=== PATIENT | female | born 1955 ===

== ENCOUNTER 2021-07-02 05:08 | Inpatient (IN) | payer BC ==
[2021-07-02] MEDS ORDERED: ASPIRIN 325 MG TAB PO ONE (05:26)
[2021-07-02 05:56] LABS: Basophils % (Auto) 0.6 % (0.0-1.8); Eosinophils # (Auto) 0.1 K/mm3 (0.0-0.4); Eosinophils % (Auto) 1.6 % (0.0-4.3); Hematocrit 40.4 % (30.3-42.9); Hemoglobin 13.2 gm/dl (10.1-14.3); Lymphocytes # (Auto) 2.6 K/mm3 (1.2-5.4); Lymphocytes % (Auto) 54.8 % (13.4-35.0); Mean Corpuscular HGB Conc 33 % (30-34); Mean Corpuscular Volume 86 fl (79-97); Monocytes # (Auto) 0.4 K/mm3 (0.0-0.8); Monocytes % (Auto) 8.1 % (0.0-7.3); Red Blood Count 4.68 M/mm3 (3.65-5.03); Red Cell Distribution Width 13.6 % (13.2-15.2)
[2021-07-02 06:08] LABS: Platelet Count 118 K/mm3 (140-440)
[2021-07-02 06:11] LABS: Alanine Aminotransferase 13 units/L (7-56); Albumin 4.3 g/dL (3.9-5); BUN/Creatinine Ratio 15; Blood Urea Nitrogen 9 mg/dL (7-17); Calcium 9.7 mg/dL (8.4-10.2); Hemolysis Index 8
--- NOTE | 2021-07-02 06:44 | Emergency Department Report ---
ED Chest Pain HPI - General Chief Complaint: Chest Pain Stated Complaint: CHEST PAIN Time Seen by Provider: 07/02/21 06:23 Source: patient, EMS Mode of arrival: Stretcher Limitations: No Limitations - History of Present Illness Initial Comments: Patient is 66 years old female with history of hypertension. Patient presented to the ER complaining left-sided chest pain. Patient stated that pain started this morning woke from sleep. Patient described the chest pain as tightness that radiated to the left arm. Pain resolved with nitroglycerin however patient returned back again. Patient denies any shortness of breath. No fever chills or cough. MD Complaint: chest pain -: This morning Onset: during rest Pain Location: left chest Pain Radiation: LUE Severity: moderate Severity scale (0 -10): 7 Quality: tightness, heaviness Consistency: intermittent Treatments Prior to Arrival: aspirin - Related Data Allergies Allergy/AdvReac Type Severity Reaction Status Date / Time Penicillins Allergy Hives Verified 07/02/21 05:25 Heart Score - HEART Score History: Moderately suspicious EKG: Non-specific Age: 45-65 Risk factors: 1-2 risk factors Troponin: < normal limit HEART Score: 4 - EKG Read Time Time EKG Completed: 05:34 EKG Read Time: 05:34 - Critical Actions Critical Actions: 4-6 pts:12-16.6% risk of adverse cardiac event. Should be admitted ED Review of Systems ROS: Stated complaint: CHEST PAIN Other details as noted in HPI Comment: All other systems reviewed and negative Constitutional: denies: chills, fever Respiratory: denies: cough, shortness of breath, SOB with exertion, SOB at rest Cardiovascular: chest pain. denies: palpitations, dyspnea on exertion Gastrointestinal: denies: abdominal pain, nausea, vomiting Musculoskeletal: denies: back pain Neurological: denies: headache, weakness, numbness, paresthesias, confusion ED Past Medical Hx - Past Medical History Previous Medical History?: Yes Hx Hypertension: Yes Hx Headaches / Migraines: Yes Hx Psychiatric Treatment: Yes (Anxiety) - Surgical History Past Surgical History?: Yes Additional Surgical History: Bilateral Breast Reduction - Social History Smoking Status: Never Smoker Substance Use Type: None ED Physical Exam - General Limitations: No Limitations General appearance: alert, in no apparent distress - Head Head exam: Present: atraumatic, normocephalic, normal inspection - Eye Eye exam: Present: normal appearance - ENT ENT exam: Present: normal exam, normal orophraynx, mucous membranes moist - Neck Neck exam: Present: normal inspection, full ROM. Absent: tenderness, meningismus - Respiratory Respiratory exam: Present: normal lung sounds bilaterally. Absent: chest wall tenderness - Cardiovascular Cardiovascular Exam: Present: regular rate, normal rhythm, normal heart sounds - GI/Abdominal GI/Abdominal exam: Present: soft, normal bowel sounds. Absent: distended, tenderness, guarding, rebound, rigid, organomegaly, mass, bruit, pulsatile mass, hernia - Extremities Exam Extremities exam: Present: normal inspection, full ROM, normal capillary refill. Absent: tenderness, pedal edema, joint swelling, calf tenderness - Back Exam Back exam: Present: normal inspection, full ROM. Absent: CVA tenderness (R), CVA tenderness (L) - Neurological Exam Neurological exam: Present: alert, oriented X3, CN II-XII intact, normal gait, reflexes normal. Absent: motor sensory deficit - Psychiatric Psychiatric exam: Present: normal mood - Skin Skin exam: Present: warm, intact, normal color ED Course Vital Signs 07/02/21 07/02/21 07/02/21 05:19 06:15 06:31 Temperature 98 F Pulse Rate 65 75 68 Respiratory 18 13 12 Rate Blood Pressure 154/70 155/76 146/73 Blood Pressure [Left] O2 Sat by Pulse 99 96 95 Oximetry 07/02/21 07/02/21 06:45 08:39 Temperature Pulse Rate 72 81 Respiratory 14 16 Rate Blood Pressure 146/78 Blood Pressure 145/81 [Left] O2 Sat by Pulse 96 96 Oximetry ED Medical Decision Making - Lab Data Result diagrams: 07/02/21 05:41 07/02/21 05:41 - EKG Data -: EKG Interpreted by Dc EKG shows normal: sinus rhythm Rate: normal - EKG Data Interpretation: no acute changes - Radiology Data Radiology results: report reviewed - Medical Decision Making Patient is 66 years old female with history of hypertension. Patient presented to the ER complaining left-sided chest pain. Patient stated that pain started this morning woke from sleep. Patient described the chest pain as tightness that radiated to the left arm. Pain resolved with nitroglycerin however patient returned back again. Patient denies any shortness of breath. No fever chills or cough. EKG showed no ST elevation. Labs reviewed and is unremarkable including a nega tive troponin x2. Patient required another dose of nitroglycerin in the emergency room. Patient received aspirin in the ER. Chest x-ray is unremarkable. I discussed the patient with Dr. Hernandez, he agreed to admit the patient to the hospital for further management. Critical Care Time: Yes Critical care time in (mins) excluding proc time.: 35 Critical care attestation.: If time is entered above; I have spent that time in minutes in the direct care of this critically ill patient, excluding procedure time. ED Disposition Clinical Impression: Unstable angina Disposition: ADMITTED INPATIENT Is pt being admited?: Yes Condition: Stable Instructions: Angina, [id number]
--- NOTE | 2021-07-02 07:03 | XRay Report ---
CHEST 1 VIEW 07/02/2021 5:50 AM INDICATION / CLINICAL INFORMATION: chest pain. COMPARISON: None available. FINDINGS: SUPPORT DEVICES: None. HEART / MEDIASTINUM: No significant abnormality. LUNGS / PLEURA: No significant pulmonary abnormality. No significant pleural effusion. No pneumothora x. ADDITIONAL FINDINGS: No significant additional findings. IMPRESSION: 1. No acute abnormality of the chest. Signer Name: Juma Herrmann MD Signed: 07/02/2021 6:58 AM Workstation Name: [id number]
[2021-07-02 08:19] LABS: INR 0.91 (0.87-1.13); Partial Thromboplastin Time 25.1 Sec. (24.2-36.6)
[2021-07-02] MEDS ORDERED: NITROGLYCERIN 0.4 MG TAB SUBL SL ONE (09:08)
[2021-07-02] MEDS ORDERED: ONDANSETRON 4 MG/2 ML INJ IV PRN (13:24)
[2021-07-02] MEDS ORDERED: ACETAMINOPHEN 325 MG TAB PO PRN (13:24)
[2021-07-02] MEDS ORDERED: METOCLOPRAMIDE 10 MG/2 ML INJ IV PRN (13:24)
[2021-07-02] MEDS: MORPHINE 2 MG/1 ML INJ IV PRN ×2 (15:22→22:27)
[2021-07-02 21:13] LABS: Creatine Kinase MB 1.3 ng/mL (0.0-4.0)
[2021-07-02] MEDS: IBUPROFEN 600 MG TAB PO PRN (22:23)
[2021-07-02] MEDS: FAMOTIDINE 20 MG TAB PO SCH (22:31)
[2021-07-02 23:33] LABS: Creatine Kinase MB 1.4 ng/mL (0.0-4.0)
--- NOTE | 2021-07-03 00:03 | History and Physical Report ---
History of Present Illness Date of examination: 07/02/21 Date of admission: 07/02/21 11:46 Chief complaint: Chest pain since a.m. History of present illness: Patient is 66 years old female with history of hypertension. Patient presented to the ER complaining left-sided chest pain. Patient stated that pain started this morning woke from sleep. Patient described the chest pain as tightness that radiated to the left arm. Pain resolved with nitroglycerin however patient returned back again. Patient denies any shortness of breath. No fever chills or cough. Chest pain is intermittent and about 8 on a scale of 1-10. Exacerbated by touching her left side of the chest especially in the left second and third costochondral junction and precordial area. Chest pain is reproducible. - Past Medical History --Previous Medical History?: Yes --Hypertension: Yes --Headaches / Migraines: Yes --Psychiatric Treatment: Yes (Anxiety) - Surgical History --Past Surgical History?: Yes --Additional Surgical History: Bilateral Breast Reduction - Social History --Smoking Status: Never Smoker --Substance Use Type: None Review of Systems ROS: Constitutional no weight loss or weight gain no fever or chills HEENT no sore throat no post nasal drip no diplopia Neck no neck stiffness no lymph gland enlargement Chest and lungs no shortness of breath cough or wheezing CVS no chest pain no diaphoresis no palpitations GI no nausea no vomiting no diarrhea Genitourinary system no dysuria no flank pain Musculoskeletal system no muscle pains no joint pains [employer] no syncope no seizures Skin no rash no itching Psychiatric no depression no homicidal or suicidal tendencies Hematologic no lymphedema or bruising Endocrine no polydipsia no polyuria no cold intolerance no heat intolerance Medications and Allergies Allergies Allergy/AdvReac Type Severity Reaction Status Date / Time Penicillins Allergy Hives Verified 07/02/21 05:25 Home Medications Medication Instructions Recorded Confirmed Last Taken Type SUMAtriptan SUCCINATE [Imitrex] 50 mg PO QDAY PRN 07/02/21 07/02/21 Unknown History Active Meds: Active Medications Acetaminophen (Acetaminophen 325 Mg Tab) 650 mg PO Q4H PRN PRN Reason: Pain MILD(1-3)/Fever >100.5/JIMENEZ Famotidine (Famotidine 20 Mg Tab) 20 mg PO BID YOHANNES Last Admin: 05/21/22 22:31 Dose: 20 mg Ibuprofen (Ibuprofen 600 Mg Tab) 600 mg PO Q6H PRN PRN Reason: Pain, Mild (1-3) Last Admin: 07/02/21 22:23 Dose: 600 mg Metoclopramide HCl (Metoclopramide 10 Mg/2 Ml Inj) 10 mg IV Q6H PRN PRN Reason: Nausea And Vomiting Morphine Sulfate (Morphine 2 Mg/1 Ml Inj) 2 mg IV Q4H PRN PRN Reason: Pain, Moderate (4-6) Last Admin: 07/02/21 22:27 Dose: 2 mg Ondansetron HCl (Ondansetron 4 Mg/2 Ml Inj) 4 mg IV Q8H PRN PRN Reason: Nausea And Vomiting Sodium Chloride (Sodium Chloride 0.9% 10 Ml Flush Syringe) 10 ml IV BID YOHANNES Last Admin: 07/02/21 22:23 Dose: 10 ml Sodium Chloride (Sodium Chloride 0.9% 10 Ml Flush Syringe) 10 ml IV PRN PRN PRN Reason: LINE FLUSH Sodium Chloride (Sodium Chloride 0.9% 10 Ml Flush Syringe) 10 ml IV BID YOHANNES Sodium Chloride (Sodium Chloride 0.9% 10 Ml Flush Syringe) 10 ml IV PRN PRN PRN Reason: LINE FLUSH Exam - Constitutional Vitals: Temp Pulse Resp BP Pulse Ox 98.5 F 65 18 108/56 96 07/02/21 20:25 07/02/21 20:25 07/02/21 20:25 07/02/21 20:25 07/02/21 20:25 General appearance: Present: no acute distress, well-nourished - EENT Eyes: Present: PERRL ENT: hearing intact, clear oral mucosa - Neck Neck: Present: supple, normal ROM - Respiratory Respiratory effort: normal Respiratory: bilateral: CTA - Cardiovascular Heart rate: 78 Rhythm: regular Heart Sounds: Present: S1 & S2. Absent: rub, click Details: Chest wall tenderness present. 's second and third costochondral junction and left infraclavicular area Pain is reproducible - Extremities Extremities: pulses symmetrical, No edema Peripheral Pulses: within normal limits - Abdominal General gastrointestinal: Present: soft, non-tender, non-distended, normal bowel sounds Female genitourinary: Present: normal - Integumentary Integumentary: Present: clear, warm, dry - Musculoskeletal Musculoskeletal: gait normal, strength equal bilaterally - Psychiatric Psychiatric: appropriate mood/affect, intact judgment & insight - Neurologic Neurologic: CNII-XII intact, moves all extremities HEART Score - HEART Score History: Slightly suspicious EKG: Non-specific Age: 45-65 Risk factors: 1-2 risk factors Troponin: Troponin T < 0.010 ng/mL (0.00-0.029) 07/02/21 22:57 Troponin: < normal limit HEART Score: 3 - Critical Actions Critical Actions: 4-6 pts:12-16.6% risk of adverse cardiac event. Should be admitted Results - Labs CBC & Chem 7: 07/03/21 04:33 07/03/21 04:33 Labs: Laboratory Last Values WBC 4.8 K/mm3 (4.5-11.0) 07/02/21 05:41 RBC 4.68 M/mm3 (3.65-5.03) 07/02/21 05:41 Hgb 13.2 gm/dl (10.1-14.3) 07/02/21 05:41 Hct 40.4 % (30.3-42.9) 07/02/21 05:41 MCV 86 fl (79-97) 07/02/21 05:41 MCH 28 pg (28-32) 07/02/21 05:41 MCHC 33 % (30-34) 07/02/21 05:41 RDW 13.6 % (13.2-15.2) 07/02/21 05:41 Plt Count 118 K/mm3 (140-440) L 07/02/21 05:41 Lymph % (Auto) 54.8 % (13.4-35.0) H 07/02/21 05:41 [place] % (Auto) 8.1 % (0.0-7.3) H 07/02/21 05:41 Eos % (Auto) 1.6 % (0.0-4.3) 07/02/21 05:41 Baso % (Auto) 0.6 % (0.0-1.8) 07/02/21 05:41 Lymph # (Auto) 2.6 K/mm3 (1.2-5.4) 07/02/21 05:41 [place] # (Auto) 0.4 K/mm3 (0.0-0.8) 07/02/21 05:41 Eos # (Auto) 0.1 K/mm3 (0.0-0.4) 07/02/21 05:41 Baso # (Auto) 0.0 K/mm3 (0.0-0.1) 07/02/21 05:41 Seg Neutrophils % 34.9 % (40.0-70.0) L 07/02/21 05:41 Seg Neutrophils # 1.7 K/mm3 (1.8-7.7) L 07/02/21 05:41 PT 13.2 Sec. (12.2-14.9) 07/02/21 07:49 INR 0.91 (0.87-1.13) 07/02/21 07:49 APTT 25.1 Sec. (24.2-36.6) 07/02/21 07:49 Sodium 142 mmol/L (137-145) 07/02/21 05:41 Potassium 4.2 mmol/L (3.6-5.0) 07/02/21 05:41 Chloride 106.2 mmol/L (98-107) 07/02/21 05:41 Carbon Dioxide 27 mmol/L (22-30) 07/02/21 05:41 Anion Gap 13 mmol/L 07/02/21 05:41 BUN 9 mg/dL (7-17) 07/02/21 05:41 Creatinine 0.6 mg/dL (0.6-1.2) 07/02/21 05:41 Estimated GFR > 60 ml/min 07/02/21 05:41 BUN/Creatinine Ratio 15 % 07/02/21 05:41 Glucose 94 mg/dL (65-100) 07/02/21 05:41 Calcium 9.7 mg/dL (8.4-10.2) 07/02/21 05:41 Total Bilirubin 0.30 mg/dL (0.1-1.2) 07/02/21 05:41 AST 15 units/L (5-40) 07/02/21 05:41 ALT 13 units/L (7-56) 07/02/21 05:41 Alkaline Phosphatase 72 units/L (35-129) 07/02/21 05:41 Total Creatine Kinase 78 units/L (30-135) 07/02/21 22:57 CK-MB (CK-2) 1.4 ng/mL (0.0-4.0) 07/02/21 22:57 CK-MB (CK-2) Rel Index 1.7 (0-4) 07/02/21 22:57 Troponin T < 0.010 ng/mL (0.00-0.029) 07/02/21 22:57 NT-Pro-B Natriuret Pep 48.55 pg/mL (0-900) 07/02/21 07:49 Total Protein 7.1 g/dL (6.3-8.2) 07/02/21 05:41 Albumin 4.3 g/dL (3.9-5) 07/02/21 05:41 Albumin/Globulin Ratio 1.5 % 07/02/21 05:41 - Imaging and Cardiology EKG: report reviewed (Sinus rhythm no acute ST-T wave changes) Assessment and Plan Advance Directives: Yes (Full code) VTE prophylaxis?: Chemical Plan of care discussed with patient/family: Yes - Patient Problems (1) Costochondritis, acute Current Visit: Yes Status: Acute Plan to address problem: Classic case of acute costochondritis Chest wall tenderness present. Especially in the left second and third costochondral region and left infraclavicular area IV Toradol initiated Patient to be discharged and NSAIDs by primary team Serial troponins for now to rule out any acute coronary syndrome (2) Atypical chest pain Current Visit: Yes Status: Acute Plan to address problem: Serial troponins and CK-MB's Discharge tomorrow if troponins and CK-MB's are negative Clinically more more favor of acute costochondritis Patient can follow-up with cardiology 1 to 2 weeks (3) HTN (hypertension) Current Visit: Yes Status: Chronic Plan to address problem: Continue antihypertensives and adjust medications (4) JEWEL (generalized anxiety disorder) Current Visit: Yes Status: Chronic Plan to address problem: Patient on BuSpar 10 mg twice a day (5) DVT prophylaxis Current Visit: Yes Status: Acute (6) Advance care planning Current Visit: Yes Status: Acute (7) Discharge planning issues Current Visit: Yes Status: Acute (8) Migraines Current Visit: Yes Status: Inactive Plan to address problem: Imitrex on hold (9) DVT prophylaxis Current Visit: Yes Status: Acute Plan to address problem: On anticoagulation GI prophylaxis (10) Advance care planning Current Visit: Yes Status: Acute Plan to address problem: Disease education conducted, care plan discussed, diagnosis discussed, prognosis discussed. Patient is full code. Patient acknowledges understanding and agreement with care plan. +30 minutes. (11) Discharge planning issues Current Visit: Yes Status: Acute Plan to address problem: If troponins and CK-MB's are negative patient can be discharged tomorrow on NSAID's Follow-up with cardiology as outpatient in 1 to 2 weeks
[2021-07-03 04:24] VITALS: BP 124/70
[2021-07-03 05:25] LABS: Hematocrit 39.5 % (30.3-42.9); Hemoglobin 12.7 gm/dl (10.1-14.3); Mean Corpuscular HGB Conc 32 % (30-34); Mean Corpuscular Volume 87 fl (79-97); Red Blood Count 4.52 M/mm3 (3.65-5.03); Red Cell Distribution Width 13.8 % (13.2-15.2)
[2021-07-03 05:38] LABS: Platelet Count 136 K/mm3 (140-440)
[2021-07-03 05:44] LABS: Alanine Aminotransferase 12 units/L (7-56); Albumin 3.5 g/dL (3.9-5); BUN/Creatinine Ratio 15; Blood Urea Nitrogen 9 mg/dL (7-17); Calcium 9.1 mg/dL (8.4-10.2); Hemolysis Index 15
[2021-07-03 06:31] LABS: Anisocytosis 1+; Basophils % (Manual) 0 % (0.0-1.8); Platelet Estimate Consistent w Auto; Total Cells Counted 100
[2021-07-03] MEDS: KETOROLAC 30 MG/1 ML INJ IV SCH ×3 (06:39→12:54)
[2021-07-03] MEDS: FAMOTIDINE 20 MG TAB PO SCH (09:05)
--- NOTE | 2021-07-03 09:47 | Discharge Summary ---
Providers - Providers Date of Admission: 07/02/21 11:46 Date of discharge: 07/03/21 Attending physician: ANNE-MARIE SANTIAGO MD Primary care physician: [facility] [employer] Hospitalization Reason for admission: Atypical chest pain, ACS rule out Condition: Stable Pertinent studies: Reviewed. Procedures: None. Hospital course: Patient is a 66-year-old female past medical history of hypertension, anxiety, migraine headaches, and morbid obesity who presented to the ED with left-sided chest pain that she stated awoke her from sleep. She describes the pain as tight and radiating to her left arm and resolving with nitroglycerin. She describes the pain as having returned on a scale of 8 out of 10. The pain is exacerbated by palpation of her left chest, especially in the left second and third costochondral junction and precordial area. On presentation to the ED, the patient was hemodynamically stable. The patient had negative troponins x4 with unremarkable labs. The patient will follow-up with outpatient cardiology in approximately 2 weeks to be evaluated for possible outpatient stress test. Patient is medically clear for discharge. Disposition: 01 HOME / SELF CARE / HOMELESS Final Discharge Diagnosis (Prints w/discharge instructions): Acute costochondritis, atypical chest pain, hypertension, generalized anxiety disorder, migraine headaches, morbid obesity Time spent for discharge: 45 min Core Measure Documentation - Palliative Care Palliative Care/ Comfort Measures: Not Applicable - Core Measures Any of the following diagnoses?: none Exam - Constitutional Vitals: Temp Pulse Resp BP Pulse Ox 97.4 F L 62 18 124/70 98 07/03/21 04:12 07/03/21 04:12 07/03/21 04:12 07/03/21 04:12 07/03/21 07:59 General appearance: Present: no acute distress, well-nourished, obese - EENT Eyes: Present: PERRL, EOM intact ENT: hearing intact, clear oral mucosa - Neck Neck: Present: supple, normal ROM - Respiratory Respiratory effort: normal Respiratory: bilateral: CTA - Cardiovascular Rhythm: regular Heart Sounds: Present: S1 & S2 - Extremities Extremities: no ischemia, pulses intact, pulses symmetrical, No edema, normal temperature, normal color Peripheral Pulses: within normal limits - Abdominal General gastrointestinal: Present: soft, non-tender, non-distended, normal bowel sounds Female genitourinary: Present: deferred - Rectal Rectal Exam: deferred - Integumentary Integumentary: Present: clear, warm, dry - Musculoskeletal Musculoskeletal: strength equal bilaterally - Psychiatric Psychiatric: appropriate mood/affect, cooperative - Neurologic Neurologic: CNII-XII intact - Allied Health Allied health notes reviewed: nursing Plan Activity: advance as tolerated Diet: low salt Additional Instructions: Patient is a 66-year-old female past medical history of hypertension, anxiety, migraine headaches, and morbid obesity who presented to the ED with left-sided chest pain that she stated awoke her from sleep. She describes the pain as tight and radiating to her left arm and resolving with nitroglycerin. She describes the pain as having returned on a scale of 8 out of 10. The pain is exacerbated by palpation of her left chest, especially in the left second and third costochondral junction and precordial area. On presentation to the ED, the patient was hemodynamically stable. The patient had negative troponins x4 with unremarkable labs. The patient will follow-up with outpatient cardiology in approximately 2 weeks to be evaluated for possible outpatient stress test. Patient is medically clear for discharge. Care Plan Goals: Patient is medically clear for discharge. Assessment: Patient is a 66-year-old female past medical history of hypertension, anxiety, migraine headaches, and morbid obesity who presented to the ED with left-sided chest pain that she stated awoke her from sleep. She describes the pain as tight and radiating to her left arm and resolving with nitroglycerin. She describes the pain as having returned on a scale of 8 out of 10. The pain is exacerbated by palpation of her left chest, especially in the left second and third costochondral junction and precordial area. On presentation to the ED, the patient was hemodynamically stable. The patient had negative troponins x4 with unremarkable labs. The patient will follow-up with outpatient cardiology in approximately 2 weeks to be evaluated for possible outpatient stress test. Patient is medically clear for discharge. Follow up with: PAUL AGUILA MD [Primary Care Provider] - 3-5 Days RULA VALLE MD [Staff Physician] - 14 Days ESTRELLITA VILLALPANDO MD [Staff Physician] - 14 Days (For outpatient stress test. ) Prescriptions: SUMAtriptan SUCCINATE [Imitrex] 50 mg PO QDAY PRN #30 tab PRN Reason: Migraine Headache
[2021-07-03] MEDS: IBUPROFEN 600 MG TAB PO PRN (11:22)
--- NOTE | 2021-07-03 18:13 | Electrocardiograph Report ---
[facility] Test Date: 2021-07-02 Test Time: 05:34:41 Pat Name: FREDERIC REINOSO Department: Room: A451 Gender: F Slot Host: CULLEN : 1955 Requested By: WOODY NICHOLS Order Number: [id number] Reading MD: Reva Richter Measurements Intervals [place] Rate: 66 P: 58 [place]: 199 QRS: 44 QRSD: 83 T: 69 QT: 379 QTc: 398 Interpretive Statements Sinus rhythm No previous ECG available for comparison Electronically Signed On 07-03-2021 18:13:19 EDT by Reva Richter
--- NOTE | 2021-07-04 08:57 | Electrocardiograph Report ---
[facility] Test Date: 2021-07-03 Test Time: 10:24:34 Pat Name: FREDERIC REINOSO Department: Room: A451 1 Gender: F Alarm Installation Technician: LOREN : 1955 Requested By: WOODY NICHOLS Order Number: [id number] Reading MD: Dylan Anaya Measurements Intervals [place] Rate: 75 P: 64 [place]: 181 QRS: 29 QRSD: 84 T: 63 QT: 383 QTc: 429 Interpretive Statements Sinus rhythm Compared to ECG 07/02/2021 05:34:41 No significant changes Electronically Signed On 07-04-2021 8:57:06 EDT by Dylan Anaya
== END 2021-07-03 17:39 | disposition home or self-care (01) | DRG 206 ==
LOC: ED 05:08 → CC1 11:46 → 4A 13:31
PROVIDERS: ADMIT Internal Medicine; ATTEND Student in an Organized Health Care Education/Training Program
DX: M94.0 Chondrocostal junction syndrome [Tietze] (principal); I10 Essential (primary) hypertension; G43.909 Migraine, unspecified, not intractable, without status migrainosus; F41.9 Anxiety disorder, unspecified; F41.1 Generalized anxiety disorder; E66.01 Morbid (severe) obesity due to excess calories; Z68.37 Body mass index [BMI] 37.0-37.9, adult
CPT/HCPCS: 36415; 71045; 80053; 82550; 82553; 83880; 84484; 85007; 85025; 85610; 85730; 93005; G0378; J1885; J2270